=== PATIENT | male | born 1950 | race Caucasian/White ===

== ENCOUNTER 2020-06-16 21:32 | Emergency (ER) | payer OTHER, MEDICARE ==
[2020-06-17] MEDS ORDERED: AUGMENTIN 875-1 EACH PO (01:55)
== END 2020-06-17 02:13 | disposition home or self-care (01) ==
LOC: FER 21:32
DX: S51.851A Open bite of right forearm, initial encounter (principal); I10 Essential (primary) hypertension; Z23 Encounter for immunization; Z79.82 Long term (current) use of aspirin; Z87.891 Personal history of nicotine dependence; W54.0XXA Bitten by dog, initial encounter; Y92.009 Unspecified place in unspecified non-institutional (private) residence as the place of occurrence of the external cause
CPT/HCPCS: 73090; 90471; 90714

== ENCOUNTER 2020-09-09 09:01 | Emergency (ER) | payer OTHER, MEDICARE ==
[~2020-09-09 09:01] MED LIST: AUGMENTIN 875-1 EACH PO
[2020-09-09] MEDS ORDERED: AUGMENTIN 875-1 EACH PO (13:18)
[2020-09-09] MEDS ORDERED: NORCO 5-325 TA1 EACH PO (13:18)
[2020-09-09 14:38] LABS: BASOPHIL 0.5 % (0-2); EOSINOPHIL 1.3 % (0-7); HCT 40.4 % (42.0-52.0); HGB 13.8 g/dl (13.2-18.0); MCH 31.8 pg (25.0-31.0); MCHC 34.2 g/dL (32.0-36.0); MCV 93.1 fL (78.0-100.0); MONOCYTE 10.3 % (0-12); MPV 9.5 fL (6.0-9.5); NEUTROPHIL 73.7 % (41-80); NRBC 0; PLT 165 K/uL (150-400); RBC 4.34 M/uL (4.70-6.00); RDW 12.9 % (11.5-14.0); WBC 9.2 K/uL (4.0-10.5)
[2020-09-09 15:05] LABS: BUN/CREAT RATIO (CALC) 13.6 RATIO; CREATININE 1.03 mg/dL (0.67-1.17); POTASSIUM 3.5 mmol/L (3.5-5.1)
== END 2020-09-09 16:39 | disposition home or self-care (01) ==
LOC: FER 09:01
PROVIDERS: Emergency Medicine
DX: S51.852A Open bite of left forearm, initial encounter (principal); S51.851A Open bite of right forearm, initial encounter; S81.851A Open bite, right lower leg, initial encounter; W54.0XXA Bitten by dog, initial encounter; Y92.009 Unspecified place in unspecified non-institutional (private) residence as the place of occurrence of the external cause
CPT/HCPCS: 36415; 73090; 80048; 85025; 93005; J7040